=== PATIENT | female | born 1950 | race Two or more races ===

== ENCOUNTER 2022-01-04 11:45 | Emergency (ER) | payer MEDICARE, MEDICAID ==
[~2022-01-04] VITALS: Ht 165.1 cm; Wt 68.0 kg
[2022-01-04] MEDS ORDERED: cefTRIAXone SOD 1,000 MG VL IM ONE (15:30)
[2022-01-04] MEDS ORDERED: PROM1SOL4 PO (16:50)
[2022-01-04] MEDS ORDERED: AZIT500T66 PO (16:50)
[2022-01-04] MEDS ORDERED: ACET-1080 PO (16:50)
[2022-01-04 17:05] VITALS: BP 115/42
== END 2022-01-04 17:18 | disposition home or self-care (01) ==
LOC: EDBD 11:45 → ER 11:45
DX: U07.1 COVID-19 (principal); J03.90 Acute tonsillitis, unspecified
CPT/HCPCS: 36415; 71046; 87426; 96372; 99284; J0696